=== PATIENT | female | born 1995 | race Caucasian/White ===

== ENCOUNTER 2018-02-16 23:08 | Emergency (ER) | payer OTHER ==
[2018-02-16 23:20] VITALS: BP 109/67
== END 2018-02-17 00:31 | disposition left against medical advice (07) ==
LOC: ED 23:08
DX: R07.9 Chest pain, unspecified (principal); Z53.21 Procedure and treatment not carried out due to patient leaving prior to being seen by health care provider
CPT/HCPCS: 93005

== ENCOUNTER 2019-02-07 13:56 | Inpatient (IN) | payer OTHER ==
[2019-02-07] MEDS ORDERED: Misoprostol TAB* 100 MCG VAGINAL ONE (15:19)
[2019-02-07] MEDS ORDERED: Buffered Lidocaine 1% SYRIN* 1 ML/SYRINGE INTRADERM ONE (15:19)
[2019-02-07] MEDS ORDERED: Lactated Ringers 1000 ML Bag* 1,000 ML IV ONE (15:19)
--- NOTE | 2019-02-07 15:26 | HP ---
General Information - Reason for Visit 40wks EGA, GDM diet controlled, obesity, induction of labor - General Information Maternal Age: 23 Grav: 1 Para: 0 SAB: 0 IEA: 0 Estimated Due Date: 02/07/19 Determined By: LMP Gestational Age in Weeks/Days: 40 Maternal Blood Type and Rh: B Positive - Results this Serology/RPR Result: Non-Reactive Rubella Result: Immune HBsAg Result: Negative HIV Result: Negative GBS Culture Result: Negative Past Medical History Pertinent Past Medical History: See Records - benign heart murmur, hypothyroid Pertinent Past Surgical History: See Records - tonsilectomy 2010, adnoids 2002, endoscopy 2015 Pertinent Family History: See Records - PCOS, MGF: HTN, high chol, CVD , DM; M: HTN, high chol, thyroid, osteoporosis; MGM: thyroid - Antepartal Records Antepartal Records: Reviewed, Complicated by: - GDM diet controlled Review of Systems Constitutional: Comfortable CV Complaint: No Respiratory: Shortness of Breath: No Gastrointestinal: No Nausea/Vomiting, Normal Bowel Movement Genitourinary: No Dysuria, No Bleeding, No Leaking Fluid Musculoskeletal: No Epigastric Pain Neurological: No Headache, No Visual Changes Movement: Normal Exam Allergies/Adverse Reactions: Allergies hydrocodone Allergy (Verified 02/06/19 04:41) Nausea And Vomiting T:98.4, BP: 119/73, P:94 - Measurements Height: 5 ft 2 in Weight: 256 lb Weight in lbs: [phone] Body Mass Index (BMI): 46.7 Pre- Weight: 245 lb Weight Gained This : 11 lbs and 0 ozs - Exam Breast: Breast Exam Deferred CVA: No CVA Tenderness Extremities: No Edema Heart: Normal Rhythm/Heart Sounds HEENT: No Significant Findings Lungs: Clear Bilaterally Rectal: Rectal Exam Deferred Reflexes: DTR 2+ Thyroid: No Thyromegaly - Abdominal Exam Abdomen Exam: Fundal Height Consistent with Dates - Ultrasound/Biophysical Profile Ultrasound Status: Not Done Targeted Exam Findings Estimated Weight: 8lbs Cervical Exam: 3cm Effacement: 70% Station: -2, -1 Presenting Part: Vertex Membrane Status: Intact Bleeding/Discharge: None EFM Findings - External Monitor Findings Baseline Heart Rate: 135 External Monitor Findings: Accelerations Present, No Pattern of Variable or Late Decelerations, Variability Moderate, Baseline Stable Contractions: None Assessment/Plan - Assessment 23 y.o. , 40wks EGA, GDM diet controlled, cat I NST, obesity - Obstetrical Risk Factors Obstetrical Risk Factors: Obesity, Gestational Diabetes, Tobacco Use - Plan Plan: Induction - Date/Time of Admission Date of Admission: 02/07/19 Time of Admission: 03:00
[2019-02-07] MEDS ORDERED: Lactated Ringers 1000 ML Bag* 1,000 ML IV SCH (16:00)
[2019-02-07 17:05] LABS: Urine Benzodiazepine Screen None Detected (None Detect); Urine Opiates Screen None Detected (None Detect)
[2019-02-07] MEDS ORDERED: Misoprostol TAB* 100 MCG PO ONE (19:55)
[2019-02-08] MEDS ORDERED: Nalbuphine* 10 MG/ML 1 ML VIAL IV PRN (01:51)
[2019-02-08] MEDS ORDERED: Promethazine INJ(RESTRICTED)* 25 MG/ML 1 ML VIAL IV PRN (01:51)
--- NOTE | 2019-02-08 01:56 | PN ---
Progress Note - Progress Note Date of Service: 02/08/19 SOAP: Subjective: Pt reports feeling crampy and uncomfortable. Pt is frustrated with slow progress, tired and nervous about labor pain. Objective: T:97.5, BP:137/78, P:68, FHR: 135bpm, + accels, -decels, moderate variability. Cervix: 4/90/-1, AROM with exam, meconium. Assessment: 23 y.o. , early labor, AROM, cat I NST, GDM diet controlled, obesity, hypothyroidism Plan: 1) Therapeutic rest 2) Reevaluate in AM or sooner PRN 3) Consider pitocin augmentation if no change 4) Pt desires epidural when active 5) Pt counseled on normal labor progress and pain mgmt options
[2019-02-08] MEDS ORDERED: Nicotine* 2MG (FRUIT FLAVOR) GUM PO PRN (02:02)
[2019-02-08 02:21] LABS: ABS Basophils 0.1 10^3/ul (0-0.2); ABS Eosinophils 0.1 10^3/ul (0-0.6); ABS Monocytes 0.7 10^3/ul (0-0.8); ABS Neutrophils 10.9 10^3/ul (1.5-7.7); Eosinophil % 0.4 %; Hematocrit 37 % (35-47); Hemoglobin 12.5 g/dL (12.0-16.0); Lymphocyte % 20.1 %; Mean Corpuscular HGB Conc 34 g/dL (31-36); Mean Corpuscular Hemoglobin 29 pg (27-31); Mean Corpuscular Volume 86 fL (80-97); Platelet Count 268 10^3/uL (150-450); Red Blood Count 4.26 10^6 /uL (3.70-4.87); Red Cell Distribution Width 14 % (10-15); White Blood Count 14.7 10^3/uL (3.5-10.8)
--- NOTE | 2019-02-08 12:58 | PN ---
Progress Note - Progress Note Date of Service: 02/08/19 SOAP: Subjective: Pt reports contractions are more intense but still irregular. Pt was able to rest this AM with nubain and phenergan, still feeling groggy and tired. Objective: BP:136/64, P:70, R:18, T:98.2, FHR: 125bpm, + accels, - regular decels, moderate variability. cervix: 4/80/-1 Assessment: 23 y.o. , obesity, GDM diet controlled, hypothyroid, cat I NST Plan: 1) Reviewed R/B of expectant mgmt versus labor augmentation 2) start pitocin at 3, low dose.
[2019-02-08] MEDS ORDERED: Oxytocin in LR* 20 UNITS/1,000 ML BAG IVPB SCH (13:00)
--- NOTE | 2019-02-08 17:46 | PN ---
Progress Note - Progress Note Date of Service: 02/08/19 SOAP: Subjective: Pt reports continued irregular ctx since pitocin was discontinued after 5 minute long contraction. Objective: FHR:125bpm, + accels, -decels, moderate variability, ctx q Assessment: 23 y.o. , obesity, GDM diet controlled, tobacco use, hypothyroid and cat I NST. Inadequate ctx Plan: 1) Restart pitocin at 1, 2) Dr Buchanan aware of irregular pattern and lack of progress 3) Reevaluate in 2 hrs or sooner PRN
[2019-02-08] MEDS ORDERED: OBEPIDURAL* 250 ML EPIDURAL ONE (21:31)
[2019-02-08] MEDS ORDERED: Phenylephrine 40 MCG/ML SYRINGE IV PUSH PRN ×2 (22:18)
[2019-02-08] MEDS ORDERED: Lactated Ringers 1000 ML Bag* 1,000 ML IV ONE (22:18)
[2019-02-08] MEDS ORDERED: Famotidine TAB* 20 MG PO PRN (22:18)
[2019-02-08] MEDS ORDERED: Lactated Ringers 1000 ML Bag* 500 ML IV PRN ×2 (22:18)
[2019-02-08] MEDS ORDERED: Sodium Citrate/Citric Acid* 15 ML UDC PO PRN (22:18)
[2019-02-08] MEDS ORDERED: OBEPIDURAL* 250 ML EPIDURAL SCH (23:00)
[2019-02-08] MEDS ORDERED: Lactated Ringers 1000 ML Bag* 1,000 ML IV SCH (23:00)
[2019-02-09] MEDS ORDERED: Glycerin ADULT SUPP PR PRN (04:23)
[2019-02-09] MEDS ORDERED: Dibucaine 1% 28.35 GM TUBE PR PRN (04:23)
[2019-02-09] MEDS ORDERED: Witch Hazel PAD* JAR TOPICAL PRN (04:23)
[2019-02-09] MEDS ORDERED: Ibuprofen TAB* 600 MG PO PRN (04:23)
--- NOTE | 2019-02-09 04:32 | PROCNOTE ---
[facility] OB: Delivery Note - Delivery A Date of : 02/09/19 Time of : 04:10 Sex: Female Score 1 Minute: 8 Score 5 Minutes: 9 Gestational Age in Weeks and Days at Delivery: 40 Weeks and 2 Days Delivery Method: Spontaneous Vaginal Labor: Spontaneous Amniotic Fluid: Meconium Estimated Blood Loss: 150 Anesthesia/Analgesia: IM/IV, CEI for Labor Delivered By: Olivia Pierson - Nursery Level of Nursery: Regular/Bedside - Perineum Perineal Injury: Abrasion Only - Not Repaired Perineal Repair: None - Events Delivery Events of Note: ROM > 24 Hours
[2019-02-09] MEDS ORDERED: Lactated Ringers 1000 ML Bag* 1,000 ML IV SCH (05:00)
[2019-02-09] MEDS ORDERED: Oxytocin in LR* 20 UNITS/1,000 ML BAG IVPB SCH (05:00)
[2019-02-09] MEDS ORDERED: Simethicone TAB* 80 MG TAB.CHEW PO SCH (08:30)
[2019-02-09] MEDS ORDERED: Nicotine PATCH 7 MG/24 HR* PATCH TRANSDERM SCH (09:00)
[2019-02-09] MEDS: Docusate CAP* 100 MG PO SCH ×3 (09:49→20:59)
[2019-02-09] MEDS: Acetaminophen TAB* 325 MG PO PRN ×2 (15:48→20:59)
[2019-02-09] MEDS ORDERED: Nicotine Patch Removal NOTE PATCH OFF SCH (21:00)
[2019-02-10 06:25] LABS: ABS Basophils 0.1 10^3/ul (0-0.2); ABS Eosinophils 0.2 10^3/ul (0-0.6); ABS Lymphocytes 3.7 10^3/ul (1.0-4.8); ABS Monocytes 0.8 10^3/ul (0-0.8); ABS Neutrophils 11.6 10^3/ul (1.5-7.7); Eosinophil % 1.3 %; Hematocrit 35 % (35-47); Hemoglobin 11.8 g/dL (12.0-16.0); Lymphocyte % 22.3 %; Mean Corpuscular HGB Conc 34 g/dL (31-36); Mean Corpuscular Hemoglobin 30 pg (27-31); Mean Corpuscular Volume 87 fL (80-97); Mean Platelet Volume 8.7 fL (7.4-10.4); Nucleated Red Blood Cells % 0.1; Platelet Count 227 10^3/uL (150-450); Red Blood Count 3.99 10^6 /uL (3.70-4.87); Red Cell Distribution Width 14 % (10-15); White Blood Count 16.5 10^3/uL (3.5-10.8)
[2019-02-10] MEDS ORDERED: Ferrous Gluconate TAB* 324 MG TAB PO SCH (09:00)
[2019-02-10] MEDS: Docusate CAP* 100 MG PO SCH (09:09)
[2019-02-10 10:04] VITALS: BP 139/74
== END 2019-02-10 12:00 | disposition home or self-care (01) | DRG 560 ==
LOC: MCHOBOUT 13:56 → MCHOB 15:21
PROVIDERS: ADMIT Midwife; ATTEND Midwife
PROC: 10E0XZZ Delivery of Products of Conception, External Approach (ICD-10-PCS; principal; 2019-02-09)
PROC: 3E033VJ Introduction of Other Hormone into Peripheral Vein, Percutaneous Approach (ICD-10-PCS; 2019-02-09)
DX: O24.420 Gestational diabetes mellitus in childbirth, diet controlled (principal); Z37.0 Single live birth; O99.214 Obesity complicating childbirth; O99.334 Smoking (tobacco) complicating childbirth; O48.0 Post-term pregnancy; O99.284 Endocrine, nutritional and metabolic diseases complicating childbirth; E03.9 Hypothyroidism, unspecified; O77.0 Labor and delivery complicated by meconium in amniotic fluid; Z3A.40 40 weeks gestation of pregnancy
CPT/HCPCS: 36415; 80307; 85025; 86850; 86900; 86901; A9270-GY; J2300; J2550; S0191